=== PATIENT | male | born 1995 | race Two or more races ===

== ENCOUNTER 2021-11-20 04:37 | Emergency (ER) | payer SELFPAY ==
[~2021-11-20] VITALS: Ht 157.5 cm; Wt 90.7 kg
[2021-11-20 05:07] VITALS: BP 163/96
== END 2021-11-20 08:19 | disposition left against medical advice (07) ==
LOC: EDBD 04:37 → ER 04:37
DX: R51.9 Headache, unspecified (principal); Z53.21 Procedure and treatment not carried out due to patient leaving prior to being seen by health care provider; Y08.89XA Assault by other specified means, initial encounter; Y93.89 Activity, other specified; Y92.89 Other specified places as the place of occurrence of the external cause; Y99.8 Other external cause status
CPT/HCPCS: 70450; 70486; 72125

== ENCOUNTER 2021-11-21 09:56 | Emergency (ER) | payer SELFPAY ==
[~2021-11-21] VITALS: Ht 177.8 cm; Wt 90.7 kg
[2021-11-21 10:02] VITALS: BP 136/79
== END 2021-11-21 10:38 | disposition left against medical advice (07) ==
LOC: ER 09:56
DX: R51.9 Headache, unspecified (principal); Z53.21 Procedure and treatment not carried out due to patient leaving prior to being seen by health care provider; V43.92XA Unspecified car occupant injured in collision with other type car in traffic accident, initial encounter; Y93.89 Activity, other specified; Y92.89 Other specified places as the place of occurrence of the external cause; Y99.8 Other external cause status